=== PATIENT | male | born 1940 | race Caucasian/White ===

== ENCOUNTER 2017-06-28 13:00 | Day surgery (SDC) | payer MEDICARE, OTHER ==
[~2017-06-28] VITALS: Ht 177.8 cm; Wt 97.1 kg
[~2017-06-28 13:00] MED LIST: ASPIR 8181 MG PO; GEMFIBROZIL600 MG PO; LEVOXYL175 MCG PO; MULTI VITAMIN1 EACH PO; PRESERVISION S1 EACH PO; PRILOSEC20 MG PO; PROPRANOLOL HCL20 MG PO; XALATAN2.5 ML OP
--- NOTE | 2017-06-28 15:01 | NUR ---
06/28/17 Lei1 Anay Augustine 2179-PATIENT ARRIVED TO PACU ON 3L NC O2 SAT 98% PATIENT WEANED TO 2L NC. PATIENT AWAKE DENIES PAIN OR NAUSEA. ABDOMEN ROUND ENCOURAGED TO PASS FLATUS. RR EVEN. DROWSY
--- NOTE | 2017-06-28 22:06 | OR ---
[facility] [address] [place], [place] [address] Signed DATE OF OPERATION: 06/28/2017 SURGEON: Thien Herring MD PREOPERATIVE DIAGNOSES: 1. Persistent diarrhea x1 year. 2. History of serrated adenoma in 2013 at splenic flexure. POSTOPERATIVE DIAGNOSES: 1. Sigmoid diverticulosis. 2. No evidence of recurrence of serrated adenoma (Endo nata tattoo dye area clear). PROCEDURE: Total colonoscopy to cecum with biopsy of cecum and rectum. ANESTHESIA: Intravenous sedation, fentanyl 100 mcg, Versed 5 mg. INDICATION: This 76-year-old white man is a patient of Dr. Abhishek Dumont. He has had diarrhea, which has lasted for about a year. He has had no constipation or blood per rectum. In 2013, he underwent colonoscopy where a serrated adenoma was excised from the splenic flexure. He has no family history of colon cancer. He was admitted at this time to undergo colonoscopy. He understands the risks of bleeding, infection, and perforation. FINDINGS: The prep was quite good. Complete colonoscopy was undertaken to the cecum without problem. Although the cecum and rectum appeared normal, biopsies were obtained to assess for occult colitis. He had numerous diverticula of the sigmoid and left colon. He had no evidence of polyps. The area of Endo Nata tattoo dye was noted showing no sign of recurrent serrated adenoma. DESCRIPTION OF PROCEDURE: The patient was brought to the endoscopy suite and placed in lateral decubitus position, given intravenous sedation to the point of slurred speech and nystagmus. Digital rectal examination was normal. An Olympus video colonoscope was passed in the rectum and manipulated throughout the colon ultimately intubating the cecum itself. The ileocecal valve and appendiceal orifice were normal. Biopsies were taken of the cecum and ultimately the proximal Electronically Signed By: THIEN HERRING MD 06/28/17 2206 PATIENT NAME: KAREN JENKINS OPERATIVE REPORT DATE OF : 38 REPORT #: [id number] PHYSICIAN: THIEN HERRING MD PCP: ABHISHEK DUMONT MD REPORT IS CONFIDENTIAL AND NOT TO BE RELEASED WITHOUT AUTHORIZATION [facility] [address] [facility] [place] [place] [address] Signed ascending colon. The scope was withdrawn from that point and examination throughout showed no sign of abnormality except at the area of the splenic flexure where Endo Nata tattoo dye from the past was noted. This showed no sign of recurrent or persistent polyp. Further withdrawal of scope confirmed diverticular change of the sigmoid and left colon. Retroflexed view was normal. A biopsy was obtained of the rectum, which was normal in appearance overall. The scope was removed. The patient was taken to the recovery room in good condition. CONCLUDING DIAGNOSIS: No clear etiology for diarrhea currently. PLAN: Recommend Citrucel 1 tablespoon daily. If this is not effective for him, he will let me know. We will manage his symptoms otherwise. MD BARBARA King/VANDANA /[id number] cc: Abhishek Dumont MD Copies: ABHISHEK DUMONT MD ~ Electronically Signed By: THIEN HERRING MD 06/28/17 2206 PATIENT NAME: KAREN JENKINS OPERATIVE REPORT DATE OF : 38 REPORT #: [id number] PHYSICIAN: THIEN HERRING MD PCP: ABHISHEK DUMONT MD REPORT IS CONFIDENTIAL AND NOT TO BE RELEASED WITHOUT AUTHORIZATION
== END 2017-06-28 15:45 | disposition home or self-care (01) ==
LOC: OPS 13:00 → DS 13:00 → OPS 14:00 → DS 14:00 → OPS 15:45
PROVIDERS: Surgery
PROC: 0DBP8ZX Excision of Rectum, Via Natural or Artificial Opening Endoscopic, Diagnostic (ICD-10-PCS; 2017-06-28)
PROC: 0DBF8ZX Excision of Right Large Intestine, Via Natural or Artificial Opening Endoscopic, Diagnostic (ICD-10-PCS; principal; 2017-06-28 14:00)
DX: K57.30 Diverticulosis of large intestine without perforation or abscess without bleeding (principal); E66.9 Obesity, unspecified; Z86.010 Personal history of colon polyps; Z98.890 Other specified postprocedural states; Z68.30 Body mass index [BMI] 30.0-30.9, adult
CPT/HCPCS: 88305; 99153; G0500; J2250; J3010